=== PATIENT | male | born 1995 | race Two or more races ===

== ENCOUNTER 2022-01-22 00:30 | Emergency (ER) | payer MEDICAID ==
[~2022-01-22] VITALS: Ht 180.3 cm; Wt 95.0 kg
[2022-01-22 00:30] VITALS: BP 133/93
[2022-01-22 01:29] LABS: Urine WBC None Seen /hpf (0 - 3)
[2022-01-22 01:40] LABS: Urine Bacteria NONE SEEN /hpf (None Seen); Urine Blood Negative /uL (Negative); Urine Specific Gravity 1.003 (1.001-1.035)
== END 2022-01-22 03:51 | disposition home or self-care (01) ==
LOC: ER 00:30
DX: J06.9 Acute upper respiratory infection, unspecified (principal); H92.01 Otalgia, right ear
CPT/HCPCS: 81001